=== PATIENT | female | born 1935 | race Caucasian/White ===

== ENCOUNTER 2017-08-10 09:23 | Day surgery (SDC) | payer MEDICARE, OTHER ==
--- NOTE | 2017-08-10 08:22 | HP ---
DATE OF SURGERY: 08/10/2017 HISTORY OF PRESENT ILLNESS: The patient is an 82 year-old with prior malignancy at the time, neck node increasing in size. No night sweats. No weight loss. Given her cervical adenopathy in need of excisional biopsy with dependent path. PAST MEDICAL HISTORY: Gout, hypertension, hypercholesterolemia. She did have a blood clot in her neck at the time of colon and liver cancer. PAST SURGICAL HISTORY: Colon cancer in 1997. Cancer in the liver in 1987. She had surgeries for those in the past. She also had hysterectomy in 1969. MEDICATIONS: Verapamil, lovastatin, Allopurinol. ALLERGIES: NKDA. FAMILY HISTORY: Dementia. SOCIAL HISTORY: No smoking or alcohol abuse. REVIEW OF SYSTEMS: Twelve systems reviewed per admission assessment. No chest pain or palpitations other systems negative or noncontributory as above and per preadmission questionnaire. PHYSICAL EXAMINATION: GENERAL: No acute distress. HEENT: Sclerae nonicteric. NECK: No JVD. She did have some cervical adenopathy on the right neck confirmed on right neck ultrasound. CHEST: Equal excursion, nonlabored breathing. CVS: Regular rate and rhythm. ABDOMEN: Soft, nontender. EXTREMITIES: No significant edema. NEURO: Alert, oriented, moving extremities symmetrically. No gross motor deficits noted. IMPRESSION: Enlarging right neck node in need of biopsy for definitive path. Risks and benefits explained in detail including but not limited to bleeding or infection, risk of hematoma or seroma formation, risk of sensory or motor nerve irritation, scar formation, risk of hoarseness, drooped lip, numbness or weakness but not limited to. She understands and agrees to the planned procedure, will proceed with excisional biopsy of right neck node as an outpatient.
[~2017-08-10 09:23] MED LIST: Sensorcaine 0.25% 10 ML ONE
[2017-08-10] MEDS ORDERED: Zemuron 100 MG/10 ML IV ONE (09:24)
[2017-08-10] MEDS ORDERED: DIPRIVAN 200 MG/20 ML IV ONE (09:24)
[2017-08-10] MEDS ORDERED: Decadron 4 MG INJ IV ONE (09:24)
[2017-08-10] MEDS ORDERED: TORAdol 30 mg Injection IV ONE (09:24)
[2017-08-10] MEDS ORDERED: Ephedrine Sulfate 50 MG/ML IV ONE (09:24)
[2017-08-10] MEDS ORDERED: Quelicin Fliptop 200 MG/10 ML IV ONE (09:24)
[2017-08-10] MEDS ORDERED: SUBLIMAZE 100 MCG/2 ML IV ONE (09:24)
[2017-08-10] MEDS ORDERED: Zofran 4 MG/2 ML VIAL IV ONE (09:24)
[2017-08-10] MEDS ORDERED: Lactated Ringers 1,000 ML IV ONE (09:45)
[2017-08-10] MEDS ORDERED: Lactated Ringers 1,000 ML IV SCH (10:00)
[2017-08-10] MEDS ORDERED: CLINDAMYCIN-D5W 600 MG/50 ML IV ONE (11:30)
[2017-08-10 14:02] VITALS: O2SAT 96
[2017-08-10 14:13] VITALS: BP 142/57; PULSE 56
--- NOTE | 2017-08-11 08:11 | OP ---
SURGERY DATE/TIME: 08/10/2017 1120 PREOPERATIVE DIAGNOSIS: Right cervical lymphadenopathy. POSTOPERATIVE DIAGNOSIS: Right cervical lymphadenopathy. PROCEDURE: Excisional biopsy of deep right neck node. SURGEON: Dr. Pepe De La Rosa. SOUVENIR ASSEMBLER: Jose Ko, Medical Student III. ANESTHESIA: General. ESTIMATED BLOOD LOSS: Minimal. INDICATIONS: As noted above. Risks and benefits explained in detail and not limited to and consent obtained. DESCRIPTION OF PROCEDURE AND FINDINGS: The patient is taken to the operating room. The site had been confirmed and marked in the preoperative holding area. Taken to the operating room. General anesthesia induced. After official time out and no disagreement with planned procedure, neck was prepped and draped in usual sterile fashion. A transverse incision made in skin line dissecting down through the platysma and lateral to external jugular vein carefully avoided. This abnormally hardened node was quite deep. It is slowly and carefully dissected directly on the node capsule carefully freeing it from the surrounding structures avoiding small lymphatics and arterials going into with small clip elevator repairer avoiding any visible nerve branches around the edges this took some time given this quite deep node that was carefully dissected free and finally passed off. The wound is irrigated out. A small piece of Surgicel was left in position for a few seconds and then removed. Good hemostasis noted. The wound is irrigated out. The platysma closed with 3-0 Vicryl, subcu closed with 3-0 Vicryl, skin closed with 4-0 Vicryl. Steri-Strips and sterile dressing applied. The patient tolerated the procedure well. There were no immediate complications. Findings discussed with the family out in the waiting area. She is transferred to the recovery room in stable condition.
== END 2017-08-10 14:10 | disposition home or self-care (01) ==
LOC: SDC 09:23
PROVIDERS: ATTEND Surgery
DX: R59.1 Generalized enlarged lymph nodes (principal); R20.8 Other disturbances of skin sensation; Z85.038 Personal history of other malignant neoplasm of large intestine; Z85.05 Personal history of malignant neoplasm of liver; Z79.899 Other long term (current) drug therapy; I10 Essential (primary) hypertension; M10.9 Gout, unspecified; E78.00 Pure hypercholesterolemia, unspecified
CPT/HCPCS: 36415; 88184; 88185; 88187; 88188; 88189; 99100; J0330; J1100; J1885; J2405; J2704; J3010

== ENCOUNTER 2018-05-03 05:51 | Day surgery (SDC) | payer MEDICARE, OTHER ==
[2018-05-03] MEDS ORDERED: DIPRIVAN 200 MG/20 ML IV ONE (05:52)
[2018-05-03] MEDS ORDERED: Ketamine HCl 50 MG/ML IJ ONE (05:52)
[2018-05-03] MEDS ORDERED: Lactated Ringers 1,000 ML IV SCH (06:00)
[2018-05-03 08:49] VITALS: PULSE 60
[2018-05-03 09:14] VITALS: BP 151/76; O2SAT 97
--- NOTE | 2018-05-03 14:34 | OP ---
SURGERY DATE/TIME: 05/03/2018 0800 PREOPERATIVE DIAGNOSIS: History of colon cancer. POSTOPERATIVE DIAGNOSIS: Sigmoid diverticulosis and small polyp in the transverse colon. PROCEDURE: Colonoscopy with cold biopsy forceps biopsy of polyp. SURGEON: Dr. Leyva. ANESTHESIA: MAC. Medications given by anesthesia department. HISTORY: The patient is an 82 year-old white female presenting now for reinvestigation. She previously had colon cancer. She had colon polyps removed three years ago. The patient was reappraised of the risks of the procedure including the risk of perforation, phlebitis, untoward reaction to medication, bleeding and missed lesions. The patient verbalized her understanding and desired to have the procedure performed. DESCRIPTION OF PROCEDURE: The patient was given the medications by the anesthesia department. She had continuous pulse oximetry, ECG monitoring, intermittent blood pressure monitoring and tidal CO2 monitoring during the examination. She was placed in the left lateral decubitus position. A digital rectal examination was performed and revealed normal anal sphincter tone and no masses. The flexible Olympus pediatric colonoscope was used to intubate the rectum. A view of the colon was developed sequentially to the cecum. Upon insertion and withdrawal there was noted a small polyp that was sessile that was biopsied using cold biopsy forceps technique to rule out any adenomatous change. Upon insertion and withdrawal otherwise was noted moderate sigmoid diverticulosis. The scope was removed from the patient who tolerated the procedure well and was sent back to OP recovery in good condition. The prep was noted to be fair.
== END 2018-05-03 09:23 | disposition home or self-care (01) ==
LOC: SDC 05:51
PROVIDERS: ATTEND Family Medicine
DX: K57.30 Diverticulosis of large intestine without perforation or abscess without bleeding (principal); D12.3 Benign neoplasm of transverse colon; Z85.038 Personal history of other malignant neoplasm of large intestine
CPT/HCPCS: 88305; 99100; J2704